=== PATIENT | female | born 1960 | race Caucasian/White ===

== ENCOUNTER → 2016-08-20 | Outpatient (CLI) | payer BC ==
--- NOTE | 2016-08-20 16:34 | MAMMOGRAPHY REPORT ---
BILATERAL DIGITAL SCREENING MAMMOGRAM TOMOSYNTHESIS WITH CAD: 08/20/2016 CLINICAL HISTORY: Routine screening. Patient has no complaints. TECHNIQUE: Breast tomosynthesis in addition to standard 2D mammography was performed. Current study was also evaluated with a Computer Aided Detection (CAD) system. COMPARISON: Comparison is made to exams dated: 08/27/2015 ultrasound, 08/27/2015 mammogram, 08/20/2015 ma mmogram, 08/15/2014 mammogram, 08/03/2012 mammogram, and 08/09/2013 mammogram - [facility] enter. BREAST COMPOSITION: There are scattered areas of fibroglandular density in both breasts. FINDINGS: No suspicious masses, calcifications, or areas of architectural distortion are noted in e ither breast. There has been no significant interval change compared to prior exams. IMPRESSION: ACR BI-RADS CATEGORY 1: NEGATIVE There is no mammographic evidence of malignancy. A 1 year screening mammogram is recommended. The p atient will receive written notification of the results. Approximately 10% of breast cancers are not detected with mammography. A negative mammographic repor t should not delay biopsy if a clinically suggestive mass is present. Paulette Perrin M.D. ah/:08/20/2016 15:35:39 Casino Gaming Worker: Anali WHALEN(Janis)(M), [facility] [address] letter sent: Normal 1/2 BI-RADS Code: ACR BI-RADS Category 1: Negative
== END | disposition home or self-care (01) ==
LOC: C.MAMM 09:28
PROVIDERS: ATTEND Physician Assistant
DX: Z12.31 Encounter for screening mammogram for malignant neoplasm of breast (principal)

== ENCOUNTER → 2017-08-24 | Outpatient (CLI) | payer BC ==
--- NOTE | 2017-08-26 08:01 | MAMMOGRAPHY REPORT ---
BILATERAL DIGITAL SCREENING MAMMOGRAM TOMOSYNTHESIS WITH CAD: 08/24/2017 CLINICAL HISTORY: Routine screening. Patient has no complaints. TECHNIQUE: Breast tomosynthesis in addition to standard 2D mammography was performed. Current study was also evaluated with a Computer Aided Detection (CAD) system. COMPARISON: Comparison is made to exams dated: 08/20/2016 mammogram, 08/20/2015 mammogram, 08/15/2014 cam mogram, 08/09/2013 mammogram, 08/03/2012 mammogram, and 08/03/2011 ultrasound - [facility] nter. BREAST COMPOSITION: There are scattered areas of fibroglandular density in both breasts. FINDINGS: No suspicious mass, architectural distortion or cluster of microcalcifications is seen. T here is fluctuating nodularity in the breasts. A stable intramammary lymph node in the upper outer p osterior left breast. IMPRESSION: ACR BI-RADS CATEGORY 1: NEGATIVE There is no mammographic evidence of malignancy. A 1 year screening mammogram is recommended. The pa tient will receive written notification of the results. Approximately 10% of breast cancers are not detected with mammography. A negative mammographic report should not delay biopsy if a clinically suggestive mass is present. Frances Zaidi M.D. ay/:08/24/2017 17:28:11 Division Toll Wire Chief: Rox CHU)(Bessy), [facility] letter sent: Normal 1/2 BI-RADS Code: ACR BI-RADS Category 1: Negative
== END | disposition home or self-care (01) ==
LOC: C.MAMM 09:26
PROVIDERS: ATTEND Physician Assistant
DX: Z12.31 Encounter for screening mammogram for malignant neoplasm of breast (principal)

== ENCOUNTER 2018-08-30 09:46 | Observation (INO) ==
--- NOTE | 2018-08-25 08:21 | Anesthesiology Consultation ---
Date of Service August 25, 2018 Assessment & Plan (1) Encounter for pre-operative examination: Chart Review Chart Review: Acceptable Risk for Surgery and Patient NOT seen in Pre Admission Testing Consults Requested none Teaching & Discussion Instructed NPO after midnight before surgery, except medications with 15 cc of water. Medication instructions provided according to the PAT guidelines. History Surgery Operation Date: 08/30/18 12:00 Proposed Procedures p Laparoscopic Cholecystectomy - Saroj Catherine MD, FACS Height/Weight Height: 5 ft 8 in Weight: 86.7 kg Allergies Allergy/AdvReac Type Severity Reaction Status Date / Time cephalexin [From Keflex] Allergy Intermediate Hives Verified 08/24/18 08:53 rofecoxib [From Vioxx] Allergy Intermediate DIZZY AND Verified 08/24/18 08:53 LIGHTHEADED indomethacin Allergy Mild Nausea Verified 08/24/18 08:53 adhesive AdvReac Mild SKIN Verified 08/24/18 08:53 SENSITIVITY Medications Home Medications Medication Instructions Recorded Confirmed Last Taken aspirin [Aspir-Low] 81 mg PO HS 08/24/18 08/30/18 08/29/18 21:00 atenolol 25 mg PO HS 08/24/18 08/30/18 08/29/18 21:00 cetirizine [Zyrtec] 5 mg PO HS 08/24/18 08/30/18 08/29/18 21:00 estradiol [Estrace] 2 g VAGINAL WK 08/24/18 08/30/18 08/28/18 21:00 omega 8-tdr-uty-fish oil [Fish Oil] 1 cap PO DAILY 08/24/18 08/30/18 08/25/18 09:00 omeprazole 40 mg PO QAM 08/24/18 08/30/18 08/30/18 07:00 plant stanol balta [Cholest Off] 1 dose PO UD 08/24/18 08/30/18 08/29/18 17:00 Active Medications Generic Name Dose Route Start Last Admin Trade Name Freq PRN Reason Stop Dose Admin Lactated Ringer's 1,000 mls @ 15 mls/hr 08/30/18 06:00 08/30/18 10:15 Lr IV 08/31/18 05:59 15 mls/hr .Q24H CAMILLA Administration Beta Gris Beta Gris Taken Within 24 Hours: Yes Past Medical History Medical History Deep vein thrombosis LEFT LEG 10 YEARS AGO (S/P INJURY DISLOCATING KNEE) GERD (gastroesophageal reflux disease) Herniated disc L4 History of IBS Hyperlipidemia Hypertension BORDERLINE ELEVATED Liver cyst BEING FOLLOWED WITH CT SCANS Osteoarthritis Temporomandibular joint disorder Doing PT for this currently. Has not locked but clicks significantly "jerks out of place" Past Family History Family History Sister Family history of diabetes mellitus Father Family hx colonic polyps Brother Family hx colonic polyps Past Surgical History Surgical History History of colonoscopy History of dilatation and curettage History of esophagogastroduodenoscopy (EGD) History of tooth extraction S/P surgical manipulation of knee joint LEFT KNEE MANIPULATION Past Anesthesia History No Hx of Anesthesia Complications and No Family Hx of Anesthesia Complications History of PONV No Motion Sickness Screening History of Motion Sickness: Yes Social History Smoking Status: Never smoker Do You Dip or Chew Tobacco: No Hx Alcohol Use: No Hx Substance Use: No substance use type: does not use Exercise / Class Metabolic Activity II 4-5 Yardwork/Stairs/Walk up hill (Denies CP or SOB with stairs, "out of shape") Review of Systems Pt denies any recent chest pain, shortness of breath, palpitations, cough, fever or URI. Physical Exam Vital Signs Last Vital Signs Temp 36.9 C 08/30/18 10:11 Pulse 75 08/30/18 10:11 Resp 18 08/30/18 10:11 BP 138/80 08/30/18 10:11 Pulse Ox 98 08/30/18 10:11 BP: 133/80 P: 60bpm SPO2: 99% RA T: 98.8 F R: 12 ENMT Mouth: + dental restorations (few crowns on molars, one broken crown on lower R canine); no chipped teeth and no loose teeth Thyromental Distance: < 3.5 Finger Breadths (2) Mallampati Class: III Neck + shortened thyromental distance; neck extension not limited Respiratory normal respiratory effort Auscultation: lungs clear to auscultation bilaterally Cardiovascular Rate/Rhythm: regular rate and regular rhythm Heart Sounds: no murmur Vessels: no carotid bruit Extremities: no edema Testing Electrocardiogram Date: 08/25/18 Findings: + NSR @ (67) Laboratory Results 08/25/18 08:55 08/25/18 08:55
--- NOTE | 2018-08-25 08:22 | PAT Medication Instructions ---
Medication Instructions Date of Service August 25, 2018 Home Medications aspirin [Aspir-Low] 81 mg PO HS atenolol 25 mg PO HS cetirizine [Zyrtec] 5 mg PO HS estradiol [Estrace] 2 g VAGINAL WK omega 7-twm-lys-fish oil [Fish Oil] 1 cap PO DAILY omeprazole 40 mg PO QAM plant stanol balta [Cholest Off] 1 dose PO UD Continue as directed estradiol [Estrace] 2 g VAGINAL WK ASK your surgeon for instructions aspirin [Aspir-Low] 81 mg PO HS STOP taking 2 weeks before surgery omega 2-gcp-fty-fish oil [Fish Oil] 1 cap PO DAILY DO NOT take the morning of surgery plant stanol balta [Cholest Off] 1 dose PO UD Take morning of surgery With a small sip of water, OTHERWISE NOTHING TO EAT OR DRINK AFTER MIDNIGHT: omeprazole 40 mg PO QAM Take evening before surgery atenolol 25 mg PO HS cetirizine [Zyrtec] 5 mg PO HS Other Notes If you have any questions please call us at [phone] or [phone] or [phone] or [phone]
[2018-08-25 10:59] LABS: Basophils # (auto) 0.05 K/uL (0-0.2); Basophils % (auto) 1.1 %; Eosinophils # (auto) 0.17 K/uL (0-0.5); Eosinophils % (auto) 3.8 %; Hematocrit (blood only) 42.3 % (37-47); Hemoglobin 14.1 g/dL (12.0-16.0); Immature Granulocytes # (auto) 0.02 K/uL (0.00-0.02); Immature Granulocytes % (auto) 0.5 %; Lymphocytes # (auto) 1.63 K/uL (1.2-3.4); Lymphocytes % (auto) 36.8 %; Mean Corpuscular Hgb Conc 33.3 g/dL (32-36); Mean Corpuscular Volume 92.6 fL (80-100); Mean Platelet Volume 9.7 fL (7.4-10.4); Monocytes % (auto) 11.3 %; Neutrophils # (auto) 2.06 K/uL (1.4-6.5); Neutrophils % (auto) 46.5 %; Platelet Count 250 K/uL (130-400); RDW Coefficient of Variation 12.8 % (11.5-14.5); RDW Standard Deviation 42.8 fL (36.4-46.3); Red Blood Count 4.57 M/uL (4.2-5.4); White Blood Count 4.43 K/uL (4.8-10.8)
[2018-08-25 11:08] LABS: BUN Creatinine Ratio 18.6 (10-20); Calcium 8.7 mg/dl (8.5-10.1); Creatinine Clr Calc Pharmacy 88.4 ml/min; Est GFR (Non-African American) 81.9; Potassium 4.2 mmol/L (3.5-5.1)
[~2018-08-30 09:46] MED LIST: CEFAZOLIN 2000MG 2,000 MG/15 ML SYR IV SCH; LR 15ML/HR IV SCH; cefUROXime 1,500 MG in DEXTROSE 5% 100 ML IV SCH
[2018-08-30] MEDS ORDERED: ROCURONIUM BROMIDE 10 MG/ML 5 ML VIAL ONE ×5 (10:50→12:34)
[2018-08-30] MEDS ORDERED: PROPOFOL IV EMULSION 10 MG/ML 20 ML VIAL IV ONE (10:50)
[2018-08-30] MEDS ORDERED: LIDOCAINE HCL 2% 2 ML VIAL/AMP(20MG/ML) INFIL ONE (10:50)
[2018-08-30] MEDS ORDERED: fentaNYL citrate 100 MCG/2 ML VIAL ONE ×2 (10:51→12:37)
[2018-08-30] MEDS ORDERED: MIDAZOLAM HCL 1 MG/ML 2ML VIAL ONE (10:51)
[2018-08-30] MEDS ORDERED: HYDROmorphone INJ 1 MG/ML SYRINGE IV PRN (11:12)
[2018-08-30] MEDS ORDERED: ePHEDrine sulfate 50 MG/ML AMP IV PRN (11:12)
[2018-08-30] MEDS ORDERED: ONDANSETRON INJ 2 MG/ML 2 ML VIAL IV PRN ×2 (11:12→15:09)
[2018-08-30] MEDS ORDERED: ATROPINE SULFATE 0.1 MG/ML 10ML SYR IV PRN (11:12)
--- NOTE | 2018-08-30 11:31 | History & Physical Bridge Note ---
Date of Service August 30, 2018 History & Physical Bridge Note I have examined the patient, reviewed the History & Physical and in the interval since the performance of the History & Physical I have noted the following changes of clinical significance: no changes noted
[2018-08-30] MEDS ORDERED: BUPIVACAINE 0.5 % 5 MG/1 ML MPF 30ML VIAL ONE (11:47)
[2018-08-30] MEDS ORDERED: CIPROFLOXACIN 400MG / 200ML D5W IV ONE (12:05)
[2018-08-30] MEDS ORDERED: ONDANSETRON INJ 2 MG/ML 2 ML VIAL ONE (12:34)
[2018-08-30] MEDS ORDERED: DEXAMETHASONE SOD INJ 4 MG/ML VIAL ONE (12:34)
[2018-08-30] MEDS ORDERED: NEOSTIGMINE METHYLSULFATE 1 MG/ML 10ML VIAL ONE (12:49)
[2018-08-30] MEDS ORDERED: GLYCOPYRROLATE 0.2 MG/ML VIAL ONE (12:49)
[2018-08-30] MEDS ORDERED: ACETAMINOPHEN 1,000 MG/100 ML VIAL IV ONE (12:52)
--- NOTE | 2018-08-30 12:52 | Operative Report ---
Post Operative Report Pre & Post Diagnosis Operation Date: 08/30/18 12:00 Pre-Op Diagnosis: Biliary Dyskinesia Post-Op Diagnosis: Biliary Dyskinesia same, mild chronic inflammation Procedure Operation Date: 08/30/18 12:00 Actual Procedures p Laparoscopic Cholecystectomy(Not Applicable) - Saroj Catherine MD, FACS Surgeon Saroj Catherine MD, FACS Interventional Radiology Technologist Naya Gomez Estimated Blood Loss 10 Findings Consistent with Post-Op Diagnosis Specimens gallbladder Description of Procedure see dictation I attest to the content of the Intraoperative Record and any orders documented therein. Any exceptions are noted below.
[2018-08-30] MEDS: fentaNYL citrate 100 MCG/2 ML VIAL IV PRN ×3 (13:38→13:48)
--- NOTE | 2018-08-30 14:22 | Anesthesiology Progress Note ---
Date of Service August 30, 2018 Anesthesia Post Procedure Vital Signs Vital Signs: Temp Pulse Pulse Resp BP Pulse Ox 08/30/18 14:06 53 L 14 118/72 95 08/30/18 13:55 57 L 14 131/70 99 08/30/18 13:45 49 L 14 122/73 97 08/30/18 13:35 50 L 12 128/73 99 08/30/18 13:25 50 L 14 139/70 100 08/30/18 13:15 49 L 10 L 116/73 100 08/30/18 13:07 36.2 C L 54 L 10 L 126/70 100 08/30/18 10:11 36.9 C 75 18 138/80 98 Pain Intensity Abdomen: Pain Intensity: 2 Notes Mental Status: alert / awake / arousable and participated in evaluation Patient Amnestic to Procedure: Yes Nausea / Vomiting: adequately controlled Pain: adequately controlled Airway Patency, RR, SpO2: stable & adequate BP & HR: stable & adequate Hydration State: stable & adequate Anesthetic Complications: no major complications apparent and Pt Satisfied with anesthetic care
[2018-08-30] MEDS ORDERED: HYDROCODONE/ACETAMOPHEN 5/325MG TAB PO PRN (15:09)
[2018-08-30] MEDS ORDERED: ACETAMINOPHEN 325 MG TAB PO PRN (15:09)
[2018-08-30] MEDS ORDERED: PROMETHAZINE HCL 25 MG in SODIUM CHLORIDE 0.9% 50 ML IV PRN (15:09)
[2018-08-30] MEDS ORDERED: MoRPHine SULFATE 4 MG/ML 1 ML CARP\\VIAL IV PRN (15:09)
[2018-08-30] MEDS ORDERED: PROMETHAZINE HCL 12.5 MG in SODIUM CHLORIDE 0.9% 50 ML IV PRN (15:09)
[2018-08-30] MEDS ORDERED: MoRPHine SULFATE 2 MG/ML CARP IV PRN (15:09)
[2018-08-30] MEDS ORDERED: SODIUM CHLORIDE 0.9% 1000ML 1,000 ML IV SCH (15:30)
[2018-08-30] MEDS: HYDROCODONE/ACETAMOPHEN 5/325MG TAB PO PRN ×2 (16:17→21:34)
[2018-08-30] MEDS: [UNRECOGNIZED DRUG - REMARK] SCH ×5 (16:25→16:30)
--- NOTE | 2018-08-30 16:43 | Consultation ---
Date of Consultation August 30, 2018 Assessment & Plan (1) S/P cholecystectomy: Post op day# 0 S/P laparoscopic cholecystectomy by Dr Catherine EBL #[id number]. Post op pt having some nausea -pain management per surgery -wound management per surgery -incentive spirometry -antiemetics prn nausea -on NSS at 50ml/hr -monitor H&H for acute blood loss anemia (2) HTN (hypertension): Stable -continue atenolol (3) GERD (gastroesophageal reflux disease): -continue PPI DVT Prophylaxis -SCDs Disposition per primary team Follows with Sherwin Gee PA-C for routine care Pt was seen with Dr Huerta See addendum Pt will be followed by Dr Huerta during remaining hospital course. Supervising Physician Co-Signing Physician Notes I have seen and examined the patient with physician special education assistant and agree with the assessment and plan as above and would like to comment that patient had Laparoscopic Cholecystectomy on 08/30/18 because of Biliary Dyskinesia by general surgery service and that medical hospitalist team is seeing the patient as medical consultation On physical Exam General: no acute distress Lungs: clear to ascultation bilaterally Heart: regular rate Abdomen: dressing over laproscopic sites intact, soft, nontender, bowel sounds present Extremities: no edema agree with postop medical management of issues as documented by physician as sistant History of Present Illness Reason for Consultation: post op medical management Attending Physician: Saroj Catherine MD, [facility] History of Present Illness Pt is 58 y/o F with PMH HTN, dyslipidemia, GERD, allergic rhinitis seen in medical consultation s/p laparoscopic cholecystectomy by Dr. Catherine today. Patient states having some nausea postop. Tried drinking some water and eating better however unable secondary to nausea. Denies any vomiting. Reports he has not urinated yet since surgery. Had BM this morning prior to surgery. Patient states mild abdominal discomfort. Denies BLACKMON, dizziness, syncope, neck pain, CP, SOB, cough, sore throat, choking, paresthesias. Allergies Allergy/AdvReac Type Severity Reaction Status Date / Time cephalexin [From Keflex] Allergy Intermediate Hives Verified 08/24/18 08:53 rofecoxib [From Vioxx] Allergy Intermediate DIZZY AND Verified 08/24/18 08:53 LIGHTHEADED indomethacin Allergy Mild Nausea Verified 08/24/18 08:53 adhesive AdvReac Mild SKIN Verified 08/24/18 08:53 SENSITIVITY Home Medications Home Medications Medication Instructions Recorded Confirmed Type aspirin [Aspir-Low] 81 mg PO HS 08/24/18 08/30/18 History atenolol 25 mg PO HS 08/24/18 08/30/18 History cetirizine [Zyrtec] 5 mg PO HS 08/24/18 08/30/18 History estradiol [Estrace] 2 g VAGINAL WK 08/24/18 08/30/18 History omega 7-qda-xju-fish oil [Fish Oil] 1 cap PO DAILY 08/24/18 08/30/18 History omeprazole 40 mg PO QAM 08/24/18 08/30/18 History plant stanol balta [Cholest Off] 1 dose PO UD 08/24/18 08/30/18 History Patient History Medical History Temporomandibular joint disorder (Chronic) Doing PT for this currently. Has not locked but clicks significantly "jerks out of place" History of IBS (Chronic) Liver cyst (Chronic) BEING FOLLOWED WITH CT SCANS Osteoarthritis (Chronic) Herniated disc (Chronic) L4 History of DVT (deep vein thrombosis) (Resolved) Allergic rhinitis (Chronic) Dyslipidemia (Chronic) HTN (hypertension) (Chronic) Encounter for pre-operative examination (Chronic) Surgical History History of tooth extraction (Chronic) History of colonoscopy (Chronic) History of esophagogastroduodenoscopy (EGD) (Chronic) S/P surgical manipulation of knee joint (Chronic) LEFT KNEE MANIPULATION History of dilatation and curettage (Chronic) Family History Sister Family history of diabetes mellitus Father Family hx colonic polyps Brother Family hx colonic polyps Social History Preferred Language: Hebrew Communication Ability: Effective Hand Etcher Required: No Beliefs That Will Affect Care: None Current Living Situation: Spouse Other Information That Helps Us Care for You: No Feels Safe at Home: Yes Safety Concerns: Feels Safe At This Time Smoking Status: Never smoker Hx Alcohol Use: No Hx Substance Use: No Review of Systems As per HPI, other systems reviewed and negative Physical Exam Vital Signs (Past 24 Hours): Last Vital Signs Temp 36.4 C L 08/30/18 16:29 Pulse 54 L 08/30/18 16:29 Resp 16 08/30/18 16:29 BP 123/74 08/30/18 16:29 Pulse Ox 96 08/30/18 16:29 Physical Exam: General: no acute distress, WDWN Head: normocephalic, atraumatic Eyes: conjunctiva non-injected, anicteric ENT: normal inspection external ears, nose, mucous membranes moist Neck: supple, trachea midline Lungs: clear, no respiratory distress, no wheezing/rhonchi/rales CV: RRR, no murmur, no pretibial edema Abd: normal BS, soft, surgical dressings in place are dry, mild tenderness to palpation abdomen Ext: no cyanosis, no calf tenderness Neuro: A&O x 3, no focal deficits noted, normal affect Skin: warm, dry
--- NOTE | 2018-08-30 17:26 | Operative Report ---
DATE OF OPERATION: 08/30/2018 NAME OF OPERATION: Laparoscopic cholecystectomy. PREOPERATIVE DIAGNOSIS: Biliary colic. Biliary dyskinesia. POSTOPERATIVE DIAGNOSIS: Same with chronic cholecystitis. STAFF SURGEON: Dr. Catherine. PACKING LINE WORKER: Yariel Gomez PA-C. ANESTHESIA: General. PROCEDURE: The patient was brought in the operating room and placed on the operating table in supine position. Her abdomen was prepped and draped in usual fashion. Pneumatic stockings, orogastric tube were placed. 0.5% plain Marcaine was used to anesthetize skin and subcutaneous tissue above the umbilicus. Incision made, dissection carried down to the fascia, placing a Veress needle producing pneumoperitoneum. An 11 mm port was placed at this level and then under visualization, three 5 mm ports were placed, 1 cephalad and 2 laterally. Gallbladder was distended. It was retracted. The bile was aspirated. Dissection was carried out at the radha hepatis, identifying the cystic duct and cystic artery. There was some inflammation consistent with chronic inflammation. Cystic duct and artery were clipped and transected. The gallbladder then dissected away from the liver bed in the usual fashion and placed in an Endobag. After appropriate irrigation and hemostasis, the Endobag was removed through the umbilical site. All ports were removed. The fascia at the umbilicus closed using interrupted 0 Vicryl suture, then the incisions closed using 5-0 Prolene suture. The patient was transferred to recovery room in stable condition. My conservation assistant helped with prepping, draping, removal of the gallbladder and closure of the wounds. I attest to the content of the Intraoperative Record and any orders documented therein. Any exception s are noted below.
[2018-08-30] MEDS ORDERED: CETIRIZINE HCL 10 MG TABLET PO SCH (21:00)
[2018-08-30] MEDS ORDERED: ATENOLOL 25 MG TABLET PO SCH (21:00)
[2018-08-30] MEDS ORDERED: CIPROFLOXACIN 400 MG/200 ML BAG IV SCH (22:00)
[2018-08-31] MEDS ORDERED: CIPROFLOXACIN 400 MG/200 ML BAG IV SCH (06:00)
[2018-08-31 06:12] LABS: Basophils # (auto) 0.01 K/uL (0-0.2); Basophils % (auto) 0.1 %; Hematocrit (blood only) 40.2 % (37-47); Hemoglobin 13.4 g/dL (12.0-16.0); Immature Granulocytes # (auto) 0.01 K/uL (0.00-0.02); Immature Granulocytes % (auto) 0.1 %; Lymphocytes # (auto) 1.13 K/uL (1.2-3.4); Lymphocytes % (auto) 15.3 %; Mean Corpuscular Hgb Conc 33.3 g/dL (32-36); Mean Corpuscular Volume 91.8 fL (80-100); Mean Platelet Volume 9.2 fL (7.4-10.4); Monocytes # (auto) 0.82 K/uL (0.11-0.59); Monocytes % (auto) 11.1 %; Neutrophils % (auto) 73.4 %; Platelet Count 250 K/uL (130-400); RDW Coefficient of Variation 12.8 % (11.5-14.5); RDW Standard Deviation 42.9 fL (36.4-46.3); Red Blood Count 4.38 M/uL (4.2-5.4); White Blood Count 7.37 K/uL (4.8-10.8)
[2018-08-31 06:43] LABS: Albumin Level 3.2 gm/dl (3.4-5.0); BUN Creatinine Ratio 13.8 (10-20); Bilirubin Direct 0.2 mg/dl (0-0.2); Calcium 8.5 mg/dl (8.5-10.1); Creatinine Clr Calc Pharmacy 102.7 ml/min; Est GFR (Non-African American) 95.7; Potassium 3.9 mmol/L (3.5-5.1)
[2018-08-31 06:46] LABS: Albumin Globulin Ratio 1.1 (0.9-2); Bilirubin,Total 0.7 mg/dl (0.2-1); Phosphorus 3.2 mg/dl (2.5-4.9); Total Protein 6.2 gm/dl (6.4-8.2)
--- NOTE | 2018-08-31 06:53 | Discharge Summary ---
PRINCIPAL DIAGNOSIS: Chronic cholecystitis. PROCEDURES: The patient underwent laparoscopic cholecystectomy. HISTORY OF PRESENT ILLNESS AND HOSPITAL COURSE: The patient is a 58-year-old female with upper abdominal pain and findings of a dysfunction of her gallbladder with possible sludge, brought into the hospital on 08/30/2018 where she underwent laparoscopic cholecystectomy, which she tolerated very well. She had done very well overnight and is felt stable for discharge home today to be followed in the surgical clinic next week.
[2018-08-31] MEDS ORDERED: PANTOprazole 40 MG TAB PO SCH (09:00)
--- NOTE | 2018-08-31 11:17 | Anesthesiology Progress Note ---
Date of Service August 31, 2018 Anesthesia Post Procedure Vital Signs Vital Signs: Temp Pulse Pulse Resp BP Pulse Ox 08/31/18 07:40 36.7 C 64 17 124/72 96 08/31/18 07:01 36.8 C 67 16 111/75 96 08/31/18 03:36 36.8 C 67 16 111/75 96 08/30/18 23:05 36.8 C 70 16 124/75 94 08/30/18 19:32 36.5 C 57 L 18 125/82 96 08/30/18 17:33 36.6 C 61 17 129/74 96 08/30/18 16:29 36.4 C L 54 L 16 123/74 96 08/30/18 15:29 36.7 C 55 L 16 132/78 95 08/30/18 15:01 36.3 C L 52 L 16 123/80 96 08/30/18 14:30 36.7 C 73 16 132/77 99 08/30/18 14:06 53 L 14 118/72 95 08/30/18 13:55 57 L 14 131/70 99 08/30/18 13:45 49 L 14 122/73 97 08/30/18 13:35 50 L 12 128/73 99 08/30/18 13:25 50 L 14 139/70 100 08/30/18 13:15 49 L 10 L 116/73 100 08/30/18 13:07 36.2 C L 54 L 10 L 126/70 100 Pain Intensity Abdomen: Pain Intensity: 3 Medial Back: Pain Intensity: 0 Notes Mental Status: alert / awake / arousable and participated in evaluation Patient Amnestic to Procedure: Yes Nausea / Vomiting: adequately controlled Pain: adequately controlled Airway Patency, RR, SpO2: stable & adequate BP & HR: stable & adequate Hydration State: stable & adequate Anesthetic Complications: no major complications apparent
== END 2018-08-31 10:20 | disposition home or self-care (01) ==
LOC: 3N 09:46 → ASU 09:46